=== PATIENT | female | born 1975 | race African-American/Black ===

== ENCOUNTER 2017-07-11 01:34 | Emergency (ER) | payer BC, MEDICARE ==
[~2017-07-11] VITALS: Ht 160 cm; Wt 104.3 kg
[~2017-07-11 01:34] MED LIST: FUROSEMIDE40 MG PO; HYDROXYCHLOROQ200 MG PO; LEXAPRO10 MG PO; LISINOPRIL2.5 MG PO; NORCO 10MG-325MG1 EA PO; PRADAXA150 MG PO; SIMVASTATIN40 MG PO; TIZANIDINE HCL4 M1 PO; TRAZODONE HCL50 MG PO; TRIHEXYPHENIDYL2 MG PO; Z.0.ANTIVERT25 MG; ZOLPIDEM TARTRA10 MG PO
--- NOTE | 2017-07-11 02:55 | Diagnostic Imaging Report ---
History:Fell from the bed EXAMINATION: Head CT without contrast. COMPARISON: None. TECHNIQUE: Multidetector axial images were obtained without contrast from the foramen magnum to the vertex. The images were reconstructed using brain and bone algorithms. Thin section brain images were reformatted into coronal and sagittal planes. Intravenous contrast: None. IMAGE QUALITY: Good. FINDINGS: Parenchyma: NO abnormal density. Brain volume: Normal for age. No hemorrhage or mass. Mild volume loss at the cerebellum. Ventricles: No hydrocephalus or displacement. Arteries: No density suggestive of thrombus. Dural sinuses: No abnormal density. Subarachnoid spaces: No abnormal density. Foramen magnum: No mass, Chiari malformation, or basilar invagination. Sella: No obvious mass. Skull: No lytic or blastic lesions. No fractures. Paranasal/mastoid sinuses: Unremarkable. IMPRESSION: No acute abnormality. Mild nonspecific volume loss at the cerebellum Signed by: DR Jay Burkett M.D. on 07/11/2017 2:52 AM
--- NOTE | 2017-07-11 02:56 | Diagnostic Imaging Report ---
WRIST COMPLETE RIGHT Comparison: None Clinical history: Status post fall, pain Findings: Faint nonspecific mineralization adjacent to the first MCP. No acute fracture or dislocation. Joint spaces intact. Impression: No acute bony abnormality Signed by: Dr Miriam Castillo MD on 07/11/2017 2:52 AM
--- NOTE | 2017-07-11 02:57 | Diagnostic Imaging Report ---
CHEST 2 VIEWS, Technique: CHEST 2 VIEWS Comparison: None Clinical history: Status post fall with pain DISCUSSION: Normal appearance of the heart, mediastinum, lungs and pleural spaces. No acute bony abnormality seen. IMPRESSION: No acute abnormality. Signed by: Dr Miriam Castillo MD on 07/11/2017 2:53 AM
== END 2017-07-11 03:22 | disposition home or self-care (01) ==
LOC: ER 01:34
DX: S00.83XA Contusion of other part of head, initial encounter (principal); S20.212A Contusion of left front wall of thorax, initial encounter; S60.211A Contusion of right wrist, initial encounter; S60.221A Contusion of right hand, initial encounter; W06.XXXA Fall from bed, initial encounter; Y93.84 Activity, sleeping; Y92.003 Bedroom of unspecified non-institutional (private) residence as the place of occurrence of the external cause; I10 Essential (primary) hypertension; M06.9 Rheumatoid arthritis, unspecified; Z86.73 Personal history of transient ischemic attack (TIA), and cerebral infarction without residual deficits
CPT/HCPCS: 70450; 71020; 99283

== ENCOUNTER → 2019-12-01 | Outpatient (CLI) | payer BC, MEDICARE ==
--- NOTE | 2019-12-05 12:57 | Diagnostic Imaging Report ---
#[id number] - MGDXBIL #BILATERAL FIRST EVER DIGITAL DIAGNOSTIC MAMMOGRAM WITH CAD: 12/01/2019 No prior exams were available for comparison. The tissue of both breasts is predominantly fatty. Current study was also evaluated with a Computer Aided Detection (CAD) system. There are benign intramammary nodes in both breasts. No significant masses, calcifications, or other findings are seen in either breast. IMPRESSION: BENIGN There is no mammographic evidence of malignancy. A 1 year screening mammogram is recommended. Ultrasound evaluation of the patient's area of clinical concern will be performed during the same visit. The patient will be notified by letter of the results. MÓNICA GOMEZ M.D. kw/:12/02/2019 15:47:09 Zipper Trimmer Hand: Zakiya [facility])(Joseline), [facility] letter sent: Normal Exam Mammogram BI-RADS: 2 Benign
--- NOTE | 2019-12-05 12:57 | Diagnostic Imaging Report ---
#[id number] - USBRELIMRT ULTRASOUND OF THE RIGHT BREAST : 12/01/2019 Comparison is made to exam dated: 12/01/2019 mammogram - [facility]. Color flow and real-time ultrasound were performed on the right breast. Foote scale images of the real-time examination were reviewed. There is an benign 8 mm oval cyst in the right breast at 8 o'clock middle depth. This oval cyst is anechoic. IMPRESSION: BENIGN There is no sonographic evidence of malignancy. The 8 mm oval cyst in the right breast is consistent with a simple cyst and is benign. A 1 year screening mammogram is recommended. MÓNICA wisdom/penrad:12/02/2019 15:48:34 Moth Proofer: EVELYN CLEMENT [facility], [facility] letter sent: Normal Exam Ultrasound BI-RADS: 2 Benign
== END ==
LOC: MAMMO 09:02
PROVIDERS: ATTEND Family Medicine
DX: N63.10 Unspecified lump in the right breast, unspecified quadrant (principal)
CPT/HCPCS: 77066

== ENCOUNTER → 2020-06-19 | Outpatient (CLI) | payer BC, MEDICARE ==
--- NOTE | 2020-06-19 15:49 | Diagnostic Imaging Report ---
X-ray C-spine multiple views History: Pain Comparison: None Findings: Slight straightening of C-spine lordosis likely because of muscle spasm. Swimmer's view is suboptimal. No other significant cervical spine abnormality on this exam. Impression: No acute abnormality. Slight straightening of the C-spine lordosis likely because of muscle spasm. Signed by: Johann Lira MD on 06/19/2020 3:45 PM
== END ==
LOC: RAD 14:05
PROVIDERS: ATTEND Internal Medicine Rheumatology
DX: M54.2 Cervicalgia (principal)
CPT/HCPCS: 72050